=== PATIENT | male | born 1990 | race Caucasian/White ===

== ENCOUNTER 2017-04-08 22:20 | Emergency (ER) | payer MEDICAID, OTHER ==
[~2017-04-08] VITALS: Ht 175.3 cm; Wt 93.0 kg
--- NOTE | 2017-04-09 00:32 | ED Lower Extremity ---
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 c/o right foot pain Nursing Sepsis Screen: No Definite Risk Source: patient Exam Limitations: no limitations History of Present Illness Time seen by provider: 22:46 Initial Comments Patient fell off a trailer and rolled his right foot. He now has pain, swelling , and difficulty with weightbearing. There is affected but ankle is uninjured. Onset: just prior to arrival Allergies and Home Medications Allergies Coded Allergies: No Known Drug Allergies (Unverified , 04/08/17) Constitutional: no symptoms reported EENTM: no symptoms reported Respiratory: no symptoms reported Cardiovascular: no symptoms reported Gastrointestinal: no symptoms reported Genitourinary: no symptoms reported Musculoskeletal: see HPI Skin: no symptoms reported Psychiatric/Neurological: No Symptoms Reported Past Uefgsob-Nhiihi-Xmrhrd Hx Patient Social History Alcohol Use: Rarely Uses Recreational Drug Use: No Smoking Status: Current Everyday Smoker Type Used: Cigarettes 2nd Hand Smoke Exposure: Yes Recent Foreign Travel: No Contact w/Someone Who Travel: No Recent Infectious Disease Expo: No Recent Hopitalizations: No Seasonal Allergies Seasonal Allergies: No Surgeries HX Surgeries: No Surgeries: Tonsillectomy Respiratory Hx Respiratory Disorders: No Cardiovascular Hx Cardiac Disorders: No Neurological Hx Neurological Disorders: No Reproductive System Hx Reproductive Disorders: No Genitourinary Hx Genitourinary Disorders: No Gastrointestinal Hx Gastrointestinal Disorders: No Musculoskeletal Hx Musculoskeletal Disorders: No Endocrine Hx Endocrine Disorders: No HEENT HX ENT Disorders: No Cancer Hx Cancer: No Psychosocial Hx Psychiatric Problems: No Integumentary HX Skin/Integumentary Disorder: No Physical Exam Vital Signs Capillary Refill : Less Than 3 Seconds General Appearance: WD/WN, no apparent distress HEENT: normal ENT inspection Neck: normal inspection Respiratory: no respiratory distress Legs: bilateral leg non-tender, bilateral leg normal inspection, bilateral leg normal range of motion, bilateral leg no evidence of injury Knees: bilateral knee non-tender, bilateral knee normal inspection, bilateral knee normal range of motion, bilateral knee no evidence of injury Ankles: bilateral ankle non-tender, bilateral ankle normal inspection, bilateral ankle normal range of motion, bilateral ankle no evidence of injury Feet: right foot limited range of motion, right foot pain, right foot soft tissue tenderness, right foot swelling 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 See report below: NAME: BHANU ARGUELLES [employer] REC#: [id number] PT STATUS: DEP ER : 1990 PHYSICIAN: LOKI KU MD ADMIT DATE: 04/08/17/ER Signed Date of Exam: 04/08/17 FOOT, RIGHT, 3 VIEW INDICATION: Injury, pain. FINDINGS: There is no fracture or dislocation. There is swelling about the forefoot, most notably at the levels of the first and second MTPs. Fractures not identified. IMPRESSION: Soft tissue swelling but no appreciable fracture deformity. Dictated by: Dictated on workstation # [id number] Dict: 04/09/17727 Trans: 04/09/17 1034 Interpreted by: RACHELLE JULIEN Electronically signed by: RACHELLE JULIEN 04/09/17 1034 Departure Impression Impression: Primary Impression: Right foot sprain Qualified Codes: S93.601A - Unspecified sprain of right foot, initial encounter Disposition: 01 HOME, SELF-CARE Condition: Improved Departure-Patient Inst. Referrals: NO,LOCAL PHYSICIAN (PCP) Primary Care Physician Patient Instructions: Sprain (DC) Add. Discharge Instructions: Take Ibuprofen up to 800 mg every 8 hours as needed for pain. Add Tylenol ( acetaminophen) up to 1000 mg every 6 hours as needed for additional pain relief. Use crutches as necessary. Gradually increase your level of activity as pain allows. Rest, icing in 20 minute intervals, elevation, and compressive Derek wrap may also help with pain and swelling. You may contact the ER tomorrow afternoon if you would like an official reading from the radiologist on your x- ray. Follow-up with your primary care provider next week if not improving. All discharge instructions reviewed with patient and/or family. Voiced understanding. LOKI KU MD Apr 09, 2017 00:32
[2017-04-09 00:36] VITALS: BP 147/89
--- NOTE | 2017-04-09 08:14 | Diagnostic Imaging Report ---
INDICATION: Injury, pain. FINDINGS: There is no fracture or dislocation. There is swelling about the forefoot, most notably at the levels of the first and second MTPs. Fractures not identified. IMPRESSION: Soft tissue swelling but no appreciable fracture deformity. Dictated by: Dictated on workstation # [id number]
== END 2017-04-09 00:36 | disposition home or self-care (01) ==
LOC: EDUNIT# 22:20 → ER 22:22
DX: S93.601A Unspecified sprain of right foot, initial encounter (principal); F17.210 Nicotine dependence, cigarettes, uncomplicated; Z90.89 Acquired absence of other organs; W01.198A Fall on same level from slipping, tripping and stumbling with subsequent striking against other object, initial encounter
CPT/HCPCS: 73630; 99283